=== PATIENT | male | born 1990 | race Caucasian/White ===

== ENCOUNTER 2020-03-29 09:04 | Outpatient (REF) | payer OTHER, SELFPAY | END 2020-03-29 09:05 | disposition home or self-care (01) | LOC: HO.LAB 09:04 | PROVIDERS: Visit Provider Internal Medicine | DX: Z20.828 Contact with and (suspected) exposure to other viral communicable diseases (principal) | CPT/HCPCS: C9803; U0003 ==

== ENCOUNTER 2020-06-21 12:57 | Outpatient (REF) | payer OTHER, SELFPAY | END 2020-06-21 12:58 | disposition home or self-care (01) | LOC: HO.LAB 12:57 | PROVIDERS: Visit Provider Internal Medicine | DX: Z20.822 Contact with and (suspected) exposure to COVID-19 (principal) | CPT/HCPCS: 36415; C9803; U0003; U0005 ==

== ENCOUNTER 2021-11-18 05:11 | Emergency (ER) | payer OTHER, SELFPAY ==
[2021-11-18 05:17] VITALS: BP 172/81; PULSE 104; O2SAT 100
[2021-11-18 05:18] VITALS: BMI 28.5
--- NOTE | 2021-11-18 06:09 | ED_ITS ---
HPI - Psych General Chief Complaint: ETOH/Substance Use Stated Complaint: Substance Abuse Time Seen by Provider: 11/18/21 05:20 Source: patient Mode of arrival: EMS Limitations: no limitations History of Present Illness MD complaint: substance abuse Onset (ago): month(s) Duration: constant History of same: Yes Relieving factors: none Exacerbating factors: drug use Context: recent drug abuse (last used 4 or 5pm) Associated psychiatric symptoms: none Associated symptoms: nausea, vomiting and other (diarrhea, body aches, chills) Treatments prior to arrival: none Related Data Allergies Allergy/AdvReac Type Severity Reaction Status Date / Time shellfish derived Allergy Severe SWELLING Unverified 01/15/20 16:47 [SHELLFISH DERIVED] tramadol [TRAMADOL] Allergy Unknown HIVES Unverified 01/15/20 16:47 SEAFOOD Allergy Mild FACIAL Uncoded 01/15/20 16:47 SWELLING Review of Systems Review of Systems: Constitutional : No Weight loss, No Fever, pos Chills ENT/Mouth : No sore throat, No Rhinorrhea Eyes: No Swelling, No Redness Cardiovascular : No Chest Pain, No SOB, NoEdema Respiratory : No Cough, No Sputum, No Wheezing Gastrointestinal : Positive Nausea, Positive Vomiting, positive Diarrhea, positive abdominal Pain, No Hematochezia, No Melena Genitourinary : No Dysuria, No Urinary Frequency, No Hematuria, No Urgency Musculoskeletal : No joint pain, pos Myalgias, No Joint Swelling Skin : No Skin Lesions, No rash Neuro : No Weakness, No Numbness, No Dizziness, No Headache Psych : No Anxiety/Panic, No Depression Heme/Lymph: No Bruising, No Lymphadenopathy Endocrine : No Polyuria, No Polydipsia All other systems reviewed and are negative. [facility] Past Medical History Medical History (Updated 11/18/21 @ 06:34 by Ashleigh Diego DO) Opiate abuse, continuous Social History Social History (Updated 11/18/21 @ 06:34 by Ashleigh Diego DO) Patient Tobacco Use Status: Current everyday Tobacco user Substance Use Type: Heroin Advance Directives: No Physical Exam Vital Signs: Vital Signs: BMI result Body Mass Index 28.5 Appearance: Alert. Oriented X3. Anxious. Mild acute distress. Eyes: Pupils equal, round and reactive to light. ENT: Pharynx dry MM Neck: Normal inspection. Neck supple. CVS: Normal heart rate and rhythm. Pulses normal. Respiratory: No respiratory distress. Breath sounds normal. Abdomen: Soft and mild diffuse ttp Skin: Skin pale and dry. Normal skin color. poor skin turgor. Extremities: No lower extremity edema. No calf ttp piloerection Neuro: Oriented X 3. No motor deficit. No sensory deficit. Course Course Course Narrative: signed out to Dr. Fagan [facility] - Psych MDM Narrative Medical decision making narrative: 31 yo male with hx of heroin abuse comes in with nausea/vomiting/diarrhea body aches, chills last used yesterday 4pm. He wants to start subutex. Patient is actively vomiting at this time. Will obtain labs, hydrate, involve addiction medicine team later. Dispo per results and findings. Lab Data Result diagrams: 11/18/21 06:07 11/18/21 06:07 Labs: Lab Results 11/18/21 11/18/21 Range/Units 06:07 06:07 WBC 12.5 H (4.8-10.8) X10*3/uL RBC 4.50 L (4.60-5.80) X10*6/uL Hgb 14.0 (14.0-18.0) g/dl Hct 39.4 L (42.0-52.0) % MCV 87.6 (80.0-98.0) fL MCH 31.1 (27.0-33.0) pg MCHC 35.5 (31.0-36.0) g/dl RDW 12.3 (11.0-16.0) % Plt Count 266 (160-400) X10*3/uL MPV 9.7 (9.4-12.4) fL Immature Gran % (Auto) 0.5 H (0.0-0.4) % Neut % (Auto) 79.9 H (45-73) % Lymph % (Auto) 8.9 L (20-40) % [place] % (Auto) 9.8 (2-11) % Eos % (Auto) 0.5 (0-4) % Baso % (Auto) 0.4 (0-2) % Lymph # (Auto) 1.1 L (1.2-4.9) X10*3/uL [place] # (Auto) 1.2 (0.1-1.2) X10*3/uL Eos # (Auto) 0.1 (0.0-0.4) X10*3/uL Baso # (Auto) 0.1 (0.0-0.2) X10*3/uL Abs Immat Gran (auto) 0.06 H (0.00-0.03) X10*3/uL Absolute Neuts (auto) 10.0 H (2.0-8.3) x10*3/uL Absolute Nucleated RBC 0.000 (0.0-0.012) X10*3/uL Nucleated RBC % (auto) 0.0 (0.0-0.2) /100WBC COVID-19 (JONATAN) Positive A (Negative) COVID-19 Clin Com See Note Discharge Plan Discharge Clinical Impression: COVID-19, Opiate withdrawal Patient Disposition: Still a Patient
[2021-11-18 06:11] LABS: Basophils Absolute Auto 0.1 X10*3/uL (0.0-0.2); Basophils Percent Auto 0.4 % (0-2); Eosinophils Absolute Auto 0.1 X10*3/uL (0.0-0.4); Eosinophils Percent Auto 0.5 % (0-4); Hematocrit 39.4 % (42.0-52.0); Imm Gran Abs Auto 0.06 X10*3/uL (0.00-0.03); Imm Gran Pct Auto 0.5 % (0.0-0.4); Lymphocytes Absolute Auto 1.1 X10*3/uL (1.2-4.9); Lymphocytes Percent Auto 8.9 % (20-40); MANUAL DIFF FLAG NO; Mean Corpuscular HGB Conc 35.5 g/dl (31.0-36.0); Mean Corpuscular Hemoglobin 31.1 pg (27.0-33.0); Mean Corpuscular Volume 87.6 fL (80.0-98.0); Mean Platelet Volume 9.7 fL (9.4-12.4); Monocytes Absolute Auto 1.2 X10*3/uL (0.1-1.2); Monocytes Percent Auto 9.8 % (2-11); Neutrophils Percent Auto 79.9 % (45-73); Platelet Count 266 X10*3/uL (160-400); Red Cell Distribution Width 12.3 % (11.0-16.0); White Blood Count 12.5 X10*3/uL (4.8-10.8)
[2021-11-18] MEDS: Metoclopramide HCl 10 MG/2 ML VIAL IVPUSH (06:20)
[2021-11-18] MEDS: diphenhydrAMINE HCL 50 MG/ML VIAL 25 MG IVPUSH (06:20)
[2021-11-18] MEDS: Famotidine/PF 20 MG/2 ML VIAL IVPUSH (06:20)
[2021-11-18] MEDS: Lactated Ringers 1,000 ML 999 ML IV ×2 (06:21→10:16)
[2021-11-18 06:26] LABS: COVID-19 Test Positive (Negative); IDNOW Serial# 16C4AD1C
[2021-11-18 06:35] VITALS: BP 143/87; PULSE 88; RESP 24; TEMP 37.8; O2SAT 100
[2021-11-18] MEDS: Acetaminophen 325 MG TABLET 650 MG PO (06:46)
--- NOTE | 2021-11-18 08:15 | PC.NURSE ---
difficult stick. another tech to attempt to obtain labs, then will contact phlebotomy as needed.
[2021-11-18 08:59] LABS: Alanine Aminotransferase 21 U/L (0-40); Albumin Level 3.6 g/dL (3.5-5.0); Alkaline Phosphatase 62 U/L (39-117); Anion Gap 11 (12-20); Aspartate Amino Transferase 19 U/L (5-37); Bilirubin Direct 0.3 mg/dL (0.0-0.5); Bilirubin Total 0.7 mg/dL (0.0-1.0); Blood Urea Nitrogen 10 mg/dL (9-16); Calcium 8.6 mg/dL (8.4-10.2); Carbon Dioxide 26 mmol/L (22-29); Chloride 102 mmol/L (96-108); Creatinine Clr Calc Pharmacy 127.5; Estimated Glomerular Filt Rate > 60; Glucose Random 154 mg/dL (60-115); Lipase 8 U/L (8-78); Magnesium 1.7 mg/dL (1.6-2.6); Potassium 3.5 mmol/L (3.3-5.1); Sodium 135 mmol/L (135-145); Total Protein 6.7 g/dL (6.5-8.0)
[2021-11-18] MEDS: methADONE HCl 20 MG/2 ML ORAL.CONC 30 MG PO (11:20)
--- NOTE | 2021-11-18 11:34 | HO.ADDICTCON ---
History of Present Illness Date of Service: 11/18/2021 Chief Complaint: Substance Abuse Reason for Consult: Acute opioid withdrawal Requesting physician: Ashleigh Diego Additional Sources of Information: Patient is a 31 year old male presenting to emergency department withdrawal. He reports that he is using approximately 1 bundle of heroin/fentanyl intranasally daily for the last few months. Patient reports that he had been in recovery for 4 years prior to this recurrence of use. Initially patient was requesting buprenorphine/naloxone, however last use was yesterday late afternoon and patient feels that it is too soon to take any Suboxone. Discussed initiating methadone to treat acute withdrawal, patient agreeable and states that he would like to continue with treatment outpatient. 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. Release signed and recovery support nurse in contact with facility to obtain copy of ID. Patient denies any chronic health issues. Reporting overall body aches and joint pain, chills, anxiety. Noted to be yawning with rhinorrhea. Review of Systems Constitutional: Reports as per HPI Diagnostics Vital Signs (24Hr): Vital Signs - 24 hr 11/18/21 06:35 Temperature 100.0 F Pulse Rate 88 Respiratory Rate 24 H Blood Pressure 143/87 H Pulse Oximetry 100 Oxygen Delivery Method Room Air BMI result Body Mass Index 28.5 Labs Results: 11/18/21 06:07 11/18/21 08:30 Labs: Laboratory Results - last 48 hr 11/18/21 11/18/21 11/18/21 06:07 06:07 08:30 WBC 12.5 H RBC 4.50 L Hgb 14.0 Hct 39.4 L MCV 87.6 MCH 31.1 MCHC 35.5 RDW 12.3 Plt Count 266 MPV 9.7 Immature Gran % (Auto) 0.5 H Neut % (Auto) 79.9 H Lymph % (Auto) 8.9 L [place] % (Auto) 9.8 Eos % (Auto) 0.5 Baso % (Auto) 0.4 Lymph # (Auto) 1.1 L [place] # (Auto) 1.2 Eos # (Auto) 0.1 Baso # (Auto) 0.1 Abs Immat Gran (auto) 0.06 H Absolute Neuts (auto) 10.0 H Absolute Nucleated RBC 0.000 Nucleated RBC % (auto) 0.0 Sodium 135 Potassium 3.5 Chloride 102 Carbon Dioxide 26 Anion Gap 11 L BUN 10 Creatinine 0.93 Estim Creat Clear Calc 127.5 Estimated GFR > 60 Random Glucose 154 H Calcium 8.6 Magnesium 1.7 Total Bilirubin 0.7 Direct Bilirubin 0.3 AST 19 ALT 21 Alkaline Phosphatase 62 Total Protein 6.7 Albumin 3.6 Lipase 8 COVID-19 (JONATAN) Positive A COVID-19 Clin Com See Note Mental Status Exam Mental Status Exam Patient Appearance: Perspiring and Appropriate Level of Consciousness: Awake and Appropriate Affect Description: Anxious Thought Process: Goal Oriented Judgement: Good Medications Allergies Allergies Allergy/AdvReac Type Severity Reaction Status Date / Time shellfish derived Allergy Severe SWELLING Unverified 01/15/20 16:47 [SHELLFISH DERIVED] tramadol [TRAMADOL] Allergy Unknown HIVES Unverified 01/15/20 16:47 SEAFOOD Allergy Mild FACIAL Uncoded 01/15/20 16:47 SWELLING Assessment & Plan Assessment & Plan (1) Opiate withdrawal: Status: Acute Code(s): F11.93 - Opioid use, unspecified with withdrawal Assessment and Plan: Methadone 30 mg ordered and administered Last dose letter, copy a photo ID, and necessary clinical forms faxed to [facility]. Patient provided with last dose letter and instructions on where to go tomorrow morning for continued dosing Overdose prevention discussion Take home Narcan (2) Opioid use disorder: Status: Acute Code(s): F11.90 - Opioid use, unspecified, uncomplicated I spent _35 minutes with the patient and/or on the patient floor today, greater than?50% of which was spent counseling/coordinating care. [facility] Past Medical History Medical History (Updated 11/18/21 @ 11:47 by Anna Marie Fuentes CNP) Opiate abuse, continuous Social History Social History (Updated 11/18/21 @ 06:34 by Ashleigh Diego DO) Patient Tobacco Use Status: Current everyday Tobacco user Substance Use Type: Heroin Advance Directives: No
--- NOTE | 2021-11-18 11:38 | PC.NURSE ---
Awaiting his girlfriend to bring pants and pick him up from ED. Per Anna Marie Fuentes (ROXANA), will revisit him within next 30 minutes.
[2021-11-18] MEDS: Naloxone HCl Nasal TAKE HOME 4 MG SPRAY NOSTRILALT (12:02)
[2021-11-18 13:20] LABS: Amphetamine Screen Urine Not Detected (Not Detect); Barbiturates, Urine Not Detected (Not Detect); Benzodiazepines Screen Urine Not Detected (Not Detect); Cannabinoid Screen Urine POSITIVE (Not Detect); Cocaine Screen Urine POSITIVE (Not Detect); Fentanyl, urine POSITIVE (Not Detect); Opiate Screen Urine Not Detected (Not Detect); Phencyclidine Screen Urine Not Detected (Not Detect)
== END 2021-11-18 12:16 | disposition home or self-care (01) ==
PROVIDERS: Emergency Medicine; Emergency Provider Emergency Medicine Emergency Medical Services
DX: U07.1 COVID-19 (principal); F11.13 Opioid abuse with withdrawal; R11.2 Nausea with vomiting, unspecified; F19.10 Other psychoactive substance abuse, uncomplicated; F17.200 Nicotine dependence, unspecified, uncomplicated
CPT/HCPCS: 80048; 80076; 80307; 83690; 83735; 85025; 87635; 96361; 96374; 96375; 99283; 99284; J1200; J2765